=== PATIENT | female | born 1995 | race Caucasian/White ===

== ENCOUNTER → 2021-05-03 | Emergency (ER) | payer OTHER ==
[~2021-05-03] VITALS: Ht 157.5 cm; Wt 61.7 kg
[~2021-05-03] MED LIST: LEVOTHYROXINE25 MCG; LEVSIN/SL0.125 MG SL; PEPCID AC20 MG PO
== END | disposition home or self-care (01) ==
LOC: ER 09:26
DX: K29.60 Other gastritis without bleeding (principal); E86.0 Dehydration

== ENCOUNTER 2021-09-09 08:00 | Outpatient (CLI) | payer OTHER | END 2021-09-09 08:30 | disposition home or self-care (01) | LOC: PPH VACUNA 08:00 | PROVIDERS: ATTEND Emergency Medicine Pediatric Emergency Medicine | DX: Z23 Encounter for immunization (principal) ==

== ENCOUNTER 2021-11-30 00:31 | Emergency (ER) | payer OTHER ==
[~2021-11-30] VITALS: Ht 157.5 cm; Wt 61.2 kg
[2021-11-30] MEDS ORDERED: PEPCID AC20 MG PO (02:41)
== END 2021-11-30 02:49 | disposition home or self-care (01) ==
LOC: ER 00:31
DX: K29.70 Gastritis, unspecified, without bleeding (principal); K21.9 Gastro-esophageal reflux disease without esophagitis; E03.9 Hypothyroidism, unspecified

== ENCOUNTER 2021-12-27 10:56 | Emergency (ER) | payer OTHER ==
[~2021-12-27] VITALS: Ht 152.4 cm; Wt 61.2 kg
== END 2021-12-27 13:07 | disposition home or self-care (01) ==
LOC: ER 10:56
DX: S61.230A Puncture wound without foreign body of right index finger without damage to nail, initial encounter (principal); W27.3XXA Contact with needle (sewing), initial encounter; Y93.89 Activity, other specified; Y92.234 Operating room of hospital as the place of occurrence of the external cause; Y99.9 Unspecified external cause status

== ENCOUNTER 2022-03-27 15:48 | Emergency (ER) | payer OTHER ==
[~2022-03-27] VITALS: Ht 157.5 cm; Wt 59.9 kg
== END 2022-03-27 23:19 | disposition home or self-care (01) ==
LOC: ER 15:48
DX: R00.2 Palpitations (principal); F41.0 Panic disorder [episodic paroxysmal anxiety]

== ENCOUNTER 2022-08-10 13:36 | Emergency (ER) | payer OTHER ==
[~2022-08-10] VITALS: Ht 160 cm; Wt 68.0 kg
[2022-08-10] MEDS ORDERED: LEVOTHYROXINE25 MCG PO (14:01)
== END 2022-08-10 21:04 | disposition home or self-care (01) ==
LOC: ER 13:36
DX: K52.9 Noninfective gastroenteritis and colitis, unspecified (principal); R11.2 Nausea with vomiting, unspecified; Z88.8 Allergy status to other drugs, medicaments and biological substances

== ENCOUNTER 2023-04-06 07:35 | Emergency (ER) | payer OTHER ==
[~2023-04-06] VITALS: Ht 157.5 cm; Wt 63.5 kg
[~2023-04-06 07:35] MED LIST changes: +LEVOTHYROXINE25 MCG PO
[2023-04-06] MEDS ORDERED: MUCINEX DM ER1 EACH PO (10:30)
[2023-04-06] MEDS ORDERED: ZYRTEC10 MG PO (10:30)
[2023-04-06] MEDS ORDERED: DEXAMETHASONE2 MG PO (10:30)
[2023-04-06] MEDS ORDERED: AYR SALINE50 ML NASAL (10:30)
== END 2023-04-06 10:53 | disposition home or self-care (01) ==
LOC: ER 07:35
DX: U07.1 COVID-19 (principal)